=== PATIENT | female | born 1970 | race Caucasian/White ===

== ENCOUNTER 2018-12-03 18:02 | Outpatient (REF) | payer BC, SELFPAY ==
--- NOTE | 2018-12-03 17:00 | PAPFT_PTH ---
PATIENT: Yue Kiran LOC: [facility]#:[id number] AGE/SX: 48/F ROOM: RE12/03/[address]: Shayla Tobar : 1970 BED: DIS: 12/03/2018 SPEC #: [id number] RECD: 12/04/18 12:46 STATUS: ROSI REJose Alejandro #: [id number] LEÓN: 12/03/18 17:[address]: Shayla Tobar DEPT: [facility] Cytology RECD BY: Tierra Mehta Tissues: 1 - CX/ENDOCX FOR PAP SMEARS Procedures: PAP THIN PREP/[facility] Screening HPV DNA PROBE Comments: [id number]
[2018-12-03 21:12] LABS: Cholesterol 250 mg/dL (50-200); HDL Cholesterol 86 mg/dL (40-60); LDL CHOLESTEROL 139 mg/dL (<100); Triglyceride 104 mg/dL (30-150)
== END 2018-12-03 18:22 ==
LOC: NCHCN 18:02
PROVIDERS: PCP Registered Nurse; Visit Provider Registered Nurse
DX: Z00.00 Encounter for general adult medical examination without abnormal findings (principal); Z13.220 Encounter for screening for lipoid disorders; Z12.4 Encounter for screening for malignant neoplasm of cervix; Z11.51 Encounter for screening for human papillomavirus (HPV)
CPT/HCPCS: 80061; 83721; 88142; 87624

== ENCOUNTER 2023-04-06 21:30 | Outpatient (REF) | payer BC, SELFPAY ==
[2023-04-06 21:38] LABS: HCT 35.9 % (36.0-46.0); HGB 12.1 g/dL (11.2-15.7); MCH 30.6 pg (27.0-33.0); MCHC 33.7 % (32.0-36.0); MCV 91 fL (80-95); MPV 9.4 fL (8.0-11.0); Platelet Count 265 10^3/uL (130-400); RBC 3.96 10^6/uL (3.93-5.22); RDW 12.9 % (11.7-14.6); RDW-SD 43.1 fL; WBC 5.09 10^3/uL (4.4-10.8)
[2023-04-06 22:14] LABS: BUN 17 mg/dL (7-18); CREATININE 0.9 mg/dL (0.55-1.02); Calcium 9.1 mg/dL (8.5-10.1); Chloride 103 mmol/L (98-107); Estimated GFR 75.97 (mL/min/1.73m2); Glucose 92 mg/dL (74-106); Potassium 3.8 mmol/L (3.5-5.1); Sodium 139 mmol/L (136-145); TSH (W/Ref FT4) 1.02 uIU/mL (0.36-3.74)
== END 2023-04-06 21:31 | disposition home or self-care (01) ==
LOC: NCHCN 21:30
PROVIDERS: PCP Registered Nurse; Visit Provider Registered Nurse
DX: Z00.00 Encounter for general adult medical examination without abnormal findings (principal); Z13.29 Encounter for screening for other suspected endocrine disorder; Z80.8 Family history of malignant neoplasm of other organs or systems; Z13.228 Encounter for screening for other metabolic disorders
CPT/HCPCS: 80048; 85027; 84443

== ENCOUNTER 2024-04-11 13:23 | Outpatient (REF) | payer BC, SELFPAY ==
--- NOTE | 2024-04-11 13:20 | PAPFT_PTH ---
PATIENT: Yue Kiran LOC: [facility] U#:[id number] AGE/SX: 53/F ROOM: RE04/11/[address]: Ann Marie Dinero : 1970 BED: DIS: 04/11/2024 SPEC #: [id number] RECD: 04/12/24 13:33 STATUS: ROSI REQ #: [id number] LEÓN: 04/11/24 13:[address]: Ann Marie Dinero DEPT: [facility] Cytology RECD BY: Tierra Mehta ENTERED: 04/12/24 13:33 SP TYPE: PAPFT OTHR DR: Shayla Tobar Tissues: 1 - CX/ENDOCX FOR PAP SMEARS Procedures: PAP THIN PREP/[facility] Screening HPV DNA PROBE Comments: [id number]
== END 2024-04-11 13:24 | disposition home or self-care (01) ==
LOC: LBN 13:23
PROVIDERS: PCP Registered Nurse; Visit Provider Family Medicine
DX: Z00.00 Encounter for general adult medical examination without abnormal findings (principal); Z12.4 Encounter for screening for malignant neoplasm of cervix
CPT/HCPCS: 88142; 87624